=== PATIENT | male | born 1995 | race Caucasian/White ===

== ENCOUNTER 2017-02-16 17:53 | Emergency (ER) | payer BC ==
[~2017-02-16] VITALS: Ht 172.7 cm; Wt 72.6 kg
[2017-02-16 18:20] VITALS: BP 149/91
[2017-02-16] MEDS ORDERED: CEPH500T PO (18:43)
--- NOTE | 2017-02-16 18:43 | PHYS DOC ---
Adult General Chief Complaint Chief Complaint: FOOT INJURY PAIN HPI HPI Patient is a 21 year old male with no significant medical history who presents today with left foot laceration after stepping on a celena metal. Patient states his tetanus is up-to-date. Review of Systems Review of Systems Constitutional: Denies fever or chills [] Eyes: Denies change in visual acuity, redness, or eye pain [] Musculoskeletal: Denies back pain or joint pain [] Integument: left foot laceration Neurologic: Denies headache, focal weakness or sensory changes [] Endocrine: Denies polyuria or polydipsia [] Allergies Allergies Allergies Coded Allergies Type Severity Reaction Last Updated Verified No Known Drug Allergies 02/16/17 No Physical Exam Physical Exam Constitutional: Well developed, well nourished, no acute distress, non-toxic appearance. [] HENT: Normocephalic, atraumatic, bilateral external ears normal, oropharynx moist, no oral exudates, nose normal. [] Abdomen: Bowel sounds normal, soft, no tenderness, no masses, no pulsatile masses. [] Skin: Webspace between the left fourth and fifth toes with a tiny laceration most of it on the left fifth toe approximately 1 cm. There is no obvious tendon involvement. Full range of motion to the left foot and toes. +2 left pedal pulse. Cap refill less than 2 seconds left extremity. Sensation intact to the left foot. Back: No tenderness, no CVA tenderness. [] Extremities: No tenderness, no cyanosis, no clubbing, ROM intact, no edema. [] Neurologic: Alert and oriented X 3, normal motor function, normal sensory function, no focal deficits noted. [] Psychologic: Affect normal, judgement normal, mood normal. [] EKG EKG [] Radiology/Procedures Radiology/Procedures [] Course & Med Decision Making Course & Med Decision Making Pertinent Labs and Imaging studies reviewed. (See chart for details) Patient has a laceration fifth toe after stepping on a celena metal. His tetanus is up-to-date. Discharge him with cephalexin. Instructed to keep the area clean and dry. Return precautions. Discharged in stable condition. Dragon Disclaimer Dragon Disclaimer This electronic medical record was generated, in whole or in part, using a voice recognition dictation system. Departure Departure Impression: Primary Impression: Laceration of left foot Disposition: HOME, SELF-CARE Condition: STABLE Referrals: NO PCP (PCP) Follow-up with your own doctor in 1-2 weeks as needed Patient Instructions: Laceration Care, Adult Additional Instructions: Please keep your left foot laceration clean and dry. You can shower and get the area wet. Monitor it for signs and symptoms of infection including if you develop a fever, Increased redness over the laceration site, warmth or odor drainage from the laceration come back to the ED if they occur or follow-up with your doctor. Scripts Cephalexin (CEPHALEXIN) 500 Mg Tablet 1 TAB PO QID, #40 TAB Prov: SANGEETHA CHAVEZ APRN 02/16/17 Problem Qualifiers Primary Impression: Laceration of left foot Encounter type: initial encounter Qualified Codes: S91.312A - Laceration without foreign body, left foot, initial encounter SANGEETHA CHAVEZ APRN Feb 16, 2017 18:43
== END 2017-02-16 18:55 | disposition home or self-care (01) ==
LOC: ER 17:53
DX: S91.312A Laceration without foreign body, left foot, initial encounter (principal); W22.8XXA Striking against or struck by other objects, initial encounter; Y93.89 Activity, other specified; Y92.89 Other specified places as the place of occurrence of the external cause; Y99.8 Other external cause status
CPT/HCPCS: 99283